=== PATIENT | male | born 1970 | race Caucasian/White ===

== ENCOUNTER 2022-06-20 15:03 | Outpatient (CLI) | payer OTHER, SELFPAY ==
[2022-06-20 11:36] LABS: Chloride* 103 mmol/L (96-114); Potassium* 4.1 mmol/L (3.6-5.1); Sodium* 140 mmol/L (135-149)
[2022-06-20 11:39] LABS: Alanine Aminotransferase* 39 U/L (4-50); Blood Urea Nitrogen* 22 mg/dL (7-30); Carbon Dioxide* 29 mmol/L (20-32); Cholesterol* 202 mg/dL (90-199); Creatinine* 0.8 mg/dL (0.5-1.5); Estimated Glomerular Filt Rate 106 ml/min; Glucose* 104 mg/dL (60-115); Triglycerides* 140 mg/dL (40-149)
[2022-06-20 11:40] LABS: Calcium* 9.2 mg/dL (8.4-10.6); HDL Cholesterol* 52 mg/dL (>=40); LDL Cholesterol Calculated 122 mg/dL (<100)
[2022-06-20 12:07] LABS: PSA Screen* 0.41 ng/mL (0.10-4.00)
== END 2022-06-20 15:04 | disposition home or self-care (01) ==
PROVIDERS: PCP Family Medicine; Visit Provider Family Medicine
DX: E78.5 Hyperlipidemia, unspecified (principal); Z12.5 Encounter for screening for malignant neoplasm of prostate
CPT/HCPCS: 80048; 80061; 84153; 84460

== ENCOUNTER 2023-01-31 15:14 | Outpatient (CLI) | payer OTHER, SELFPAY | END 2023-01-31 15:15 | disposition home or self-care (01) | PROVIDERS: PCP Family Medicine; Visit Provider Internal Medicine | DX: R41.3 Other amnesia (principal); E78.5 Hyperlipidemia, unspecified; E55.9 Vitamin D deficiency, unspecified; I10 Essential (primary) hypertension; F41.9 Anxiety disorder, unspecified | CPT/HCPCS: 80053; 84443; 87086 ==

== ENCOUNTER 2023-05-21 14:30 | Outpatient (CLI) | payer BC, SELFPAY | END 2023-05-21 14:31 | disposition home or self-care (01) | PROVIDERS: PCP Family Medicine; Visit Provider Family Medicine | DX: E78.5 Hyperlipidemia, unspecified (principal); Z12.5 Encounter for screening for malignant neoplasm of prostate | CPT/HCPCS: 80061; 84153 ==

== ENCOUNTER 2023-06-12 11:24 | Outpatient (CLI) | payer BC, SELFPAY | END 2023-06-12 11:25 | disposition home or self-care (01) | PROVIDERS: PCP Family Medicine; Visit Provider Family Medicine | DX: N28.9 Disorder of kidney and ureter, unspecified (principal); E04.1 Nontoxic single thyroid nodule; E78.5 Hyperlipidemia, unspecified; I10 Essential (primary) hypertension; E55.9 Vitamin D deficiency, unspecified | CPT/HCPCS: 80048; 83735; 84443 ==

== ENCOUNTER 2023-07-11 13:05 | Outpatient (CLI) | payer BC, SELFPAY ==
--- NOTE | 2023-07-11 13:00 | CRLHL7_ITS ---
For Patients: As a result of the Cures Act, medical imaging exams and procedure reports are released immediately into your electronic medical record. You may view this report before your referring provider. If you have questions, please contact your health care provider. CLINICAL HISTORY: Thyroid nodule TECHNIQUE: Crowe-scale and color Doppler images were acquired of the thyroid gland. FINDINGS: The right lobe measures 6.3 x 2.7 x 2.5 and the left lobe measures 5.5 x 1.5 x 1.8 in size. Right thyroid lobe: 1. Right mid hypoechoic 2.3 x 2.3 x 2.2 centimeter nodule TR4. Left thyroid lobe: 1. Left lateral mid 1.6 x 0.9 x 1.2 centimeter heterogeneous hypoechoic nodule TR 4. IMPRESSION: Multinodular thyroid. ACR TI-RADS [email or web address] TR1: Benign No FNA TR2: Not Suspicious No FNA TR3: Mildly Suspicious FNA if greater than or equal to 2.5 cm Follow if greater than or equal to 1.5 cm TR4: Moderately Suspicious FNA if greater than or equal to 1.5 cm Follow if greater than or equal to 1 cm TR5: Highly Suspicious FNA if greater than or equal to 1 cm Follow if greater than or equal to 0.5 cm Dictated by Maude Ridley MD @ 07/12/2023 6:51:11 AM (Electronically Signed)
== END 2023-07-11 13:06 | disposition home or self-care (01) ==
LOC: US 13:06
PROVIDERS: PCP Family Medicine; Visit Provider Family Medicine
DX: E04.1 Nontoxic single thyroid nodule (principal)
CPT/HCPCS: 76536

== ENCOUNTER 2023-07-23 10:07 | Outpatient (CLI) | payer BC, SELFPAY ==
--- NOTE | 2023-07-23 10:15 | CRLHL7_ITS ---
For Patients: As a result of the Century Cures Act, medical imaging exams and procedure reports are released immediately into your electronic medical record. You may view this report before your referring provider. If you have questions, please contact your health care provider. INDICATION : Right thyroid nodule. TECHNIQUE : Ultrasound-guided fine needle aspiration of thyroid nodule. Comparison : 07/11/2023 FINDINGS : PROCEDURE: After the informed consent and time-out, multiple fine needle aspirations were obtained from the thyroid nodule. Fine needle performed. 25 gauge needles were used. Lidocaine was used for local anesthesia. The preliminary cytology was adequate for interpretation. Real-time imaging was used for guidance and needle placement. Post imaging ultrasound demonstrates no immediate complication. IMPRESSION : Successful fine needle aspiration of right thyroid lobe nodule. Dictated by Bryan Jung MD @ 07/23/2023 12:07:35 PM (Electronically Signed)
[2023-07-23 12:58] LABS: Hepatitis B Surface Antigen* Negative (Negative)
[2023-07-23 13:07] LABS: HIV 1/2/P24 Combo Screen* Negative (Negative)
[2023-07-23 13:15] LABS: Hepatitis C Virus Antibody* Negative (Negative)
== END 2023-07-23 10:08 | disposition home or self-care (01) ==
LOC: US 10:08
PROVIDERS: PCP Family Medicine; Visit Provider Family Medicine
DX: E04.2 Nontoxic multinodular goiter (principal)
CPT/HCPCS: 10005; 36415; 86703; 86803; 87340; 88173

== ENCOUNTER 2024-07-10 10:38 | Outpatient (CLI) | payer BC, SELFPAY ==
--- OUTSIDE RECORDS SUMMARY | 2024-07-10 10:40 | XMS_ITS | Encounter Summary ---
Author Organization [facility] Address [address] [place] [address] Care Team Providers Care Watch Dial Stoner Name Role Phone Elsewhere, Pcp Primary Care Provider Unavailabl e Reason for Visit * Reason Onset Date Comments Numbness 05/13/2024 Encounter Details Date Type Department Care Team (Late st Contact Info) Description 05/13/2024 Nurse Triage Department of Family Medicine, [facility], in [place], [place] [address] [place] [phone] Elidia Bowen, R.N. Numbness Social History Tobacco Use Types Packs/Day Years Used Date Smoking Tobacco: Never Assessed Nutrition Answer Date Recorded Nutrition: EVOO Fat Source Unknown 05/30 Nutrition: Servings of Fruits/Vegetables per Day Not on file 05/30/2023 Dental Answer Date Recorded Dental: Regular Dentist Unknown 05/30/20 Sex and Gender Information Value Date Recorded Sex Assigned at Not on file Gender Identity Not on file Sexual Orientation Not on file documented as of this encounter Miscellaneous Notes * Telephone Encounter - Elidia Bowen RRowanN. - 05/13/2024 8:23 AM CDT Chief Complaint / Reason for Call Patient is a 54 y.o. male calling regarding Numbness. Assessment Concern: Patient, who is seen in ortho, is having some return of some numbness he was having following an injury. He would like to speak to someone in ortho. Patient denies the following adult emergency symptoms: chest pain, difficulty breathing/shortness of breath, difficulty staying alert and awake, dizziness/lightheadedness/weakness, and thoughts of hurting self or others Patient transferred to specialty department, Orthopaedics, to speak to their nursing team. The recommended disposition is Misdirected. documented in this encounter Plan of Treatment Not on file documented as of this encounter Visit Diagnoses Not on filedocumented in this encounter Care Teams Watch Dial Stoner Relationship Specialty Start Date End Date Elsewhere, Pcp PCP - General 12/23/18 documented as of this encounter
--- OUTSIDE RECORDS SUMMARY | 2024-07-10 10:40 | XMS_ITS | Clinical Summary ---
Author Organization [facility] Address [address] [place] [address] Care Team Providers Care Hands Assembler Name Role Phone Elsewhere, Pcp Primary Care Provider Unavailabl e Source Comments Patient records contain information from all sites at [facility]. For routine questions regarding patient records, call [phone] during business hours, M-F 8:00 AM - 5:00 PM Central Time. Record requests for emergency care only can be directed to [phone] at any time.[facility] Allergies No known active allergies Medications Medication Sig Dispensed Refills Start Date End Date Status amphetamine-dextroa mphetamine (ADDERALL XR) 30 mg 24 hr capsule Take by mouth daily. A ctive fluticasone propionate (FLONASE) 50 mcg/actuation nasal spray 2 SPRAY INTRANASALLY EVERY DAY ADMINISTER INTO EACH NOSTRIL Active LORazepam (ATIVAN) 1 mg tablet 1 MG ORALLY EVERY 6 HOURS NEEDED FOR ANXIETY Active pantoprazole (PROTONIX) 40 mg EC tablet Take 40 mg by mouth 2 (two) times a day. Active acetaminophen (TYLENOL) 325 mg tablet Take 325 mg by mouth every 4 (four) hours as needed for pain. Active ibuprofen (ADVIL,MOTRIN) 200 mg capsule Take 600 mg by mouth every 6 (six) hours as needed for pain. Active celecoxib (CeleBREX) 200 mg capsule Take 1 capsule by mouth 2 (two) times a day. 04/15/2024 Active atorvastatin (Lipitor) 20 mg tablet TAKE 1 TAB (20 MG) ORALLY EVERY DAY AT BEDTIME 04/15/2024 Active Active Problems No known active problems Encounters Date Type Department Care Team Description 06/30/2024 Clinical Communication Department of Orthopedic Surgery in [place], [place] [address] [place] [address] Fiona Condon P.A.-C., P.A. Walic Form (Wok Comp [id number]) 05/13/2024 Clinical Communication Department of Orthopedic Surgery in [address] [phone] Fiona Condon P.A.-C., P.A. 05/13/2024 Nurse Triage Department of Family Medicine, [facility], in [address] [phone] Elidia Bowen R.N. Numbness 05/07/2024 9:45 AM CDT Office Visit Department of Orthopedic Surgery in [address] [phone] Fiona Condon P.A.-C., P.A. Fracture Fifth Metacarpal Base Displaced Subsequent With Routine Healing Right (Primary Dx) 05/07/2024 8:59 AM CDT - 05/07/2024 11:59 PM CDT Hospital Encounter Department of Radiology in [address] [phone] Fiona Condon P.A.-C., P.A. Fracture Fifth Metacarpal Base Displaced Closed Initial Right Discharge Disposition: Home or Self Care from Last 3 Months Immunizations Name Administration Dates Next Due DTaP (Infanrix, Tripedia) 04/17/2009 H1N1 All Forms 10/29/2009 Influenza, Unspecified 09/17/2007,10/03/2006,03/2005,08/30/2004 Td (Adult), adsorbed 01/29/2001 Social History Tobacco Use Types Packs/Day Years [...] on file Sexual Orientation Not on file Plan of Treatment Health Maintenance Due Date Last Done Comments CT Colonography 1969 Cologuard 1969 Colonoscopy 1969 Colorectal Cancer Screening 1969 FIT 1969 HIV Screening 1969 Hepatitis C Screening 1969 Hepatitis B Vaccines (1 of 3 - 19+ 3-dose series) 1988 Lipid (Cholesterol) Screening 05/20/2023 05/20/2018 Depression Screening (Annual PHQ-2) 10/22/2023 COVID-19 Vaccine (3 - 2022- season) 2024 11/17/2020, 10/20/2020 Influenza Vaccine (#1) 2024 , 09/10/2019, 11/12/2018, Additional history exists Fasting Glucose for Diabetes Screening 05/30/2026 05/30/2023, 05/20/2018 DTaP,Tdap,and Td Vaccines (3 - Td or Tdap) 12/10/2033 12/10/2023, 04/17/2009, 04/17/2009, Additional history exists Zoster Vaccines Completed 02/05/2023, 10/05/2022 Pneumococcal vaccine (0-64 years) Aged Out No longer eligible based on patient's age to complete this topic Procedures Procedure Name Priority Date/Time Associated Diagnosis Comments ORS CAST/SPLINT REMOVAL Routine 05/07/2024 9:45 AM CDT Fracture Fifth Metacarpal Base Displaced Subsequent With Routine Healing Right DX HAND RIGHT 3+ VIEWS RAD - Routine (most inpatients and all outpatients) 05/07/2024 9:24 AM CDT Fracture Fifth Metacarpal Base Displaced Closed Initial Right from Last 3 Months Results * cast-splint removal (05/07/2024 9:45 AM CDT) Narrative MMODAL - 05/07/2024 9:45 AM CDT Lynn Mead C.M.A. ? 05/07/2024 12:30 PM Cast-splint removal Performed by: Lynn Mead C.[place] Authorized by: Fiona Condon, KatelynA.-Lit, P.A. ?? PROCEDURE DETAILS Location: Right Upper Extremity Procedure details: Scheduled Removal Of Short Arm Cast. Appearance: Lots of Dry Skin, Otherwise Warm & [place]. Radial Pulse Present. CONSENT Consent obtained: verbal Consent given by: patient The benefits, risks and alternatives to the procedure and the potential need for sedation or anesthesia as well as the names, roles, and responsibilities of healthcare team members performing significant interventional tasks were discussed with the patient and/or decision maker. UNIVERSAL PROTOCOL All relevant documentation and testing were reviewed and available. All required blood products, implants, devices and or special equipment were made available as applicable. Pre-procedure verification was conducted and the correct site was marked if required. A fire risk assessment was done as applicable. The procedural time-out to verify correct patient, correct side/site, and procedure was conducted prior to performing the procedure and confirmed in a procedural pause. PRE-PROCEDURE DETAILS Procedure purpose: therapeutic Indications: RD5 Metacarpal Base Fracture SEDATION / ANESTHESIA Anesthesia method: none POST-PROCEDURE DETAILS ?? Procedure completed successfully: yes ?? Complications: no apparent complications Fiona Condon P.A.-C., P.A. PROCEDU RE/MINOR SURGICAL ORDERABLES MMODAL NA * DX Hand Right 3+ Views (05/07/2024 9:24 AM CDT) Anatomical Region Laterality Modality Upper Extremity, Hand, Muscu loskeletal RST LOS, Musculoskeletal ARZ LOS, Muskuloskeletal FLA LOS Right Digit al Radiography Impressions 05/07/2024 9:31 AM CDT Comparison 03/26/2024. Interval removal of external casting material. Progressive healing of oblique fifth metacarpal shaft fracture, fracture line remains visible though less conspicuous. No new fracture. Alignment is anatomic. 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 Tissue is within normal limits. Narrative 05/07/2024 9:31 AM CDT EXAM: DX HAND RIGHT 3+ VIEWS Procedure Note Mela Min D.O. - 05/07/2024 EXAM: DX HAND RIGHT 3+ VIEWS IMPRESSION: Comparison 03/26/2024. Interval removal of external casting material.Progressive healing of oblique fifth metacarpal shaft fracture, fractureline remains visible though less conspicuous. No new fracture. Alignmentis anatomic. 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 Tissue is within normal limits. Sherry Zacarias P.A.-C. IMG [facility]NO[facility] IMAGING PROCEDURES from Last 3 Months Care Teams Hands Assembler Relationship Specialty Start Date End Date Elsewhere, Pcp PCP - General 12/23/18
--- OUTSIDE RECORDS SUMMARY | 2024-07-10 10:40 | XMS_ITS | Encounter Summary ---
Author Organization [facility] Address [address] [place] [address] Care Team Providers Care Information Officer Name Role Phone Elsewhere, Pcp Primary Care Provider Unavailabl e Encounter Details Date Type Department Care Team (Late st Contact Info) Description 05/13/2024 Clinical Communication Department of Orthopedic Surgery in [place], [place] [address] [phone] Fiona Condon P.A.-C., P.A. [address] [place] [phone] Social History Tobacco Use Types Packs/Day Years [...] encounter Miscellaneous Notes * Telephone Encounter - Anni Knight R.N. - 05/13/2024 1:12 PM CDT Called patient and informed him Fiona Condon P.A.-C. Completed a work note to keep him off work today. Discussed this could be from overuse. Patient will turkey picker the work note from the Information Desk at the clinic in [place]. * Telephone Encounter - Anni Knight R.N. - 05/13/2024 8:45 AM CDT Called patient and discussed concerns with right hand. Patient sustained a right 5th metacarpal fracture on 03/25 while at work. Patient last saw Fiona Condon P.A.-C. on 05/07 and was transitioned from an ulnar gutter cast to an Exos brace. Patient states he has been wearing the brace while at work, but not wearing it when at home. Patient states he did more at work yesterday with his right hand than he normally does. Patient came home and took the brace off. Patient had numbness in his wholeright arm and pain in the right hand when he tried to make a fist. Patient took Tylenol in the middle of the night, which he feels helped with the pain. Patient still has numbness in his right hand and is unable to make a fist without pain today. Patient states he is able to move his fingers, but still has pain with gripping. documented in this encounter Plan of Treatment Not on file documented as of this encounter Visit Diagnoses Not on filedocumented in this encounter Care Teams Information Officer Relationship Specialty Start Date End Date Elsewhere, Pcp PCP - General 12/23/18 documented as of this encounter
--- OUTSIDE RECORDS SUMMARY | 2024-07-10 10:40 | XMS_ITS | Referral Summary ---
Author Organization [facility] Address [address] [place] [address] Care Team Providers Care Special Services Agent Name Role Phone Elsewhere, Pcp Primary Care Provider Unavailabl e Source Comments Patient records contain information from all sites at [facility]. For routine questions regarding patient records, call [phone] during business hours, M-F 8:00 AM - 5:00 PM Central Time. Record requests for emergency care only can be directed to [phone] at any time.[facility] Encounters Date Type Department Care Team Description 06/30/2024 Clinical Communication Department of Orthopedic Surgery in [address] [phone] Fiona Condon P.A.-C., P.A. PandaDoc Form (Wok Comp [id number]) 05/13/2024 Clinical Communication Department of Orthopedic Surgery in [address] [phone] Fiona Condon P.A.-C., P.A. 05/13/2024 Nurse Triage Department of Family Medicine, [facility], in [address] [phone] Elidia Bowen R.N. Numbness 05/07/2024 8:59 AM CDT - 05/07/2024 11:59 PM CDT Hospital Encounter Department of Radiology in [address] [phone] Fiona Condon P.A.-C., P.A. Fracture Fifth Metacarpal Base Displaced Closed Initial Right Discharge Disposition: Home or Self Care 05/07/2024 9:45 AM CDT Office Visit Department of Orthopedic Surgery in [place], [place] [address] [place] [address] Fiona Condon P.A.-C., P.A. Fracture Fifth Metacarpal Base Displaced Subsequent With Routine Healing Right (Primary Dx) from Last 3 Months Allergies No known active allergies Medications Medication [...] Active Active Problems No known active problems Immunizations Name Administration Dates Next Due DTaP (Infanrix, Tripedia) 04/17/2009 H1N1 All Forms 10/29/2009 Influenza, Unspecified 09/17/2007,10/03/2006,03/2005,08/30/2004 Td (Adult), adsorbed 01/29/2001 Social History Tobacco Use Types Packs/Day Years Used Date Smoking Tobacco: Never Assessed Nutrition Answer Date Recorded Nutrition: EVOO Fat Source Unknown 05/30 Nutrition: Servings of Fruits/Vegetables per Day Not on file 05/30/2023 Dental Answer Date Recorded Dental: Regular Dentist Unknown 05/30/20 23 Sex and Gender Information Value Date Recorded Sex Assigned at Not on file Gender Identity Not on file Sexual Orientation Not on file Plan of Treatment Not on file Procedures Procedure Name Priority Date/Time Associated Diagnosis [...] by: Lynn Mead C.[place]ahomy Authorized by: Fiona Condon P.A.-C., P.A. ?? PROCEDURE DETAILS Location: Right Upper Extremity Procedure details: Scheduled Removal Of Short Arm Cast. Appearance: Lots of Dry Skin, Otherwise Warm & [place]. Radial Pulse Present. CONSENT Consent obtained: verbal [...] ulnar jointosteoarthritis. Tissue is within normal limits. Fiona Condon P.A.-C., P.A. IMG CHAUNCEY GNOSTIC IMAGING PROCEDURES from Last 3 Months Care Teams Special Services Agent Relationship Specialty Start Date End Date Elsewhere, Pcp PCP - General 3/4/19
--- OUTSIDE RECORDS SUMMARY | 2024-07-10 10:40 | XMS_ITS | Encounter Summary ---
Author Organization [facility] Address [address] [place] [address] Care Team Providers Care Change Management Expert Name Role Phone Elsewhere, Pcp Primary Care Provider Unavailabl e Reason for Visit * Reason Onset Date Comments PandaDoc Form 06/30/2024 Wok Comp [id number] Encounter Details Date Type Department Care Team (Latest Contact Info) Description 06/30/2024 Clinical Communication Department of Orthopedic Surgery in [place], [place] [address] [phone] Fiona Condon P.A.-C., P.A. [address] [phone] PandaDoc Form (Wok Comp [id number]) Social History Tobacco Use Types Packs/Day Years [...] encounter Miscellaneous Notes * Telephone Encounter - Maranda Mathew - 07/02/2024 12:36 PM CDT Received confirmation via email from Patient Services on 07/02/24 regarding printing form(s)/contacting patient for pickup: Done * Telephone Encounter - Maranda Mathew - 07/02/2024 12:22 PM CDT - Copy emailed to [facility] to print/notify patient of pickup at clinic - Copy sent to [facility] to be scanned into the chart * Telephone Encounter - Maranda Mathew - 07/02/2024 10:27 AM CDT Form was routed to Fiona Condon PA-C, for electronic review/signature. METAL BONDING HELPER: Beck Ramirez PHONE NUMBER: [phone] INFO REQUESTED: Work Comp/HCPR (DOI: 03/24/24) INSTRUCTIONS: - Email to [facility] to print/contact for pickup * Telephone Encounter - Marielle Hall - 06/30/2024 4:37 PM CDT Work Comp form received by JOSSE Forms Team on 06/30/[address] [facility]. Please allow 7- 10 business days forform completion documented in this encounter Plan of Treatment Not on file documented as of this encounter Visit Diagnoses Not on filedocumented in this encounter Care Teams Change Management Expert Relationship Specialty Start Date End Date Elsewhere, Pcp PCP - General 12/23/18 documented as of this encounter
--- OUTSIDE RECORDS SUMMARY | 2024-07-10 10:40 | XMS_ITS | Encounter Summary ---
Author Organization [facility] Address [address] [place] [address] Care Team Providers Care Transmission Maintenance Supervisor Name Role Phone Elsewhere, Pcp Primary Care Provider Unavailabl e Reason for Referral * Outpatient (Routine) - Closed Specialty Diagnoses / Procedures Referred By Contac t Referred To Contact Diagnoses Fracture Fifth Metacarpal Base Displaced Closed Initial Right Procedures DX Hand Right 3+ Views Fiona Condon P.A.-C., P.A. [address] [place] [address] [facility] Region Referral ID Status Reason Start Date Expiration Date Visits Re quested Visits Authorized [id number] Closed 03/26/2024 03/26/2025 1 1 Reason for Visit * Outpatient (Routine) - Closed Specialty Diagnoses / Procedures Referred By Contac t Referred To Contact Diagnoses Fracture Fifth Metacarpal Base Displaced Closed Initial Right Procedures DX Hand Right 3+ Views Fiona Condon P.A.-C., P.A. [address], [place] [address] [facility] Region Referral ID Status Reason Start Date Expiration Date Visits Re quested Visits Authorized [id number] Closed 03/26/2024 03/26/2025 1 1 Encounter Details Date Type Department Care Team (Latest Contact Info) Description 05/07/2024 8:59 AM CDT - 05/07/2024 11:59 PM CDT Hospital Encounter Department of Radiology in [place], [place] [address] [place] [address] Fiona Condon P.A.-C., P.A. [address] [phone] Fracture Fifth Metacarpal Base Displaced Closed Initial Right Discharge Disposition: Home or Self Care Social History Tobacco Use Types Packs/Day Years [...] on file documented as of this encounter Medications at Time of Discharge Medication Sig Dispensed Refills Start Date End Date acetaminophen (TYLENOL) 325 mg tablet Take 325 mg by mouth every 4 (four) hours as needed for pain. amphetamine-dextroamphe tamine (ADDERALL XR) 30 mg 24 hr capsule Take by mouth daily. atorvastatin (Lipitor) 20 mg tablet TAKE 1 TAB (20 MG) ORALLY EVERY DAY AT BEDTIME 04/15/2024 celecoxib (CeleBREX) 200 mg capsule Take 1 capsule by mouth 2 (two) times a day. 04/15/2024 fluticasone propionate (FLONASE) 50 mcg/actuation nasal spray 2 SPRAY INTRANASALLY EVERY DAY ADMINISTER INTO EACH NOSTRIL ibuprofen (ADVIL,MOTRIN) 200 mg capsule Take 600 mg by mouth every 6 (six) hours as needed for pain. LORazepam (ATIVAN) 1 mg tablet 1 MG ORALLY EVERY 6 HOURS NEEDED FOR ANXIETY pantoprazole (PROTONIX) 40 mg EC tablet Take 40 mg by mouth 2 (two) times a day. documented as of this encounter Plan of Treatment Not on file documented as of this encounter Procedures Procedure Name Priority Date/Time Associated Diagnosis Comments DX HAND RIGHT 3+ VIEWS RAD - Routine (most inpatients and all outpatients) 05/07/2024 9:24 AM CDT Fracture Fifth Metacarpal Base Displaced Closed Initial Right documented in this encounter Results * DX Hand Right 3+ Views (05/07/2024 [...] P.A.-C., P.A. IMG CHAUNCEY GNOSTIC IMAGING PROCEDURES documented in this encounter Visit Diagnoses Diagnosis Fracture Fifth Metacarpal Base Displaced Closed Initial Right documented in this encounter Care Teams Transmission Maintenance Supervisor Relationship Specialty Start Date End Date Elsewhere, Pcp PCP - General 12/23/18 documented as of this encounter
--- OUTSIDE RECORDS SUMMARY | 2024-07-10 10:40 | XMS_ITS ---
Author Organization [facility] Address [address] [place] [address] Care Team Providers Care Receiver Setter Name Role Phone Unavailable Unavailable Unavailable Surgery Details Not on file Complications Check Surgery Details section. Procedure Estimated Blood Loss Check Surgery Details section. Procedure Findings Check Surgery Details section. Procedure Specimens Taken Check Surgery Details section.
--- OUTSIDE RECORDS SUMMARY | 2024-07-10 10:41 | XMS_ITS | Clinical Summary ---
Author Organization [employer] [facility] [place] [facility] [employer] [facility] Address [place], [place] [address] Care Team Providers Care Retail Marketing Coordinator Name Role Phone Bryan Salas MD Primary Care Provider + Allergies No known active allergies Medications Medication Sig Dispensed Refills Start Date End Date Status guar gum 4gm (BENEFIBER) packet Take 1 Packet by mouth 3 times daily. Mix 1 packet in 4 oz of beverage/soft food. 0 09/11/2011 Active dextroamphetamine-am phetamine (ADDERALL XR) 30 mg Extended-Release capsuleIndications:A dult ADHD Take 1 capsule by mouth once daily 90 capsule 07/18/2018 Active LORazepam (ATIVAN) 1 mg tabletIndications:An xiety Take 1 tablet by mouth every 6 hours if needed. 30 tablet 12/17/2018 Active sertraline (ZOLOFT) 100 mg tabletIndications:An xiety Take 1 tablet by mouth once daily. 90 tablet 12/17/2018 Active pantoprazole (PROTONIX) 40 mg delayed-release tabletIndications:Ga stroesophageal reflux disease, esophagitis presence not specified Take 1 tablet by mouth 2 times daily. 180 tablet 12/17/2018 Active fluticasone (50 mcg per actuation) nasal solution (FLONASE)Indications :Seasonal allergic rhinitis due to other allergic trigger Inhale 1 [place] into both nostrils once daily. 3 Bottle 12/17/2018 Active dextroamphetamine-am phetamine (ADDERALL XR) 30 mg Extended-Release capsuleIndications:A dult ADHD Take 1 capsule by mouth once daily 30 capsule 02/15/2019 Active nabumetone (RELAFEN) 750 mg tabletIndications:Kn ee effusion, right,Quadriceps muscle strain, right, initial encounter,Acute pain of right knee Take 1 tablet by mouth 2 times daily with meals. 60 tablet 12/17/2018 Active Active Problems Problem Noted Date Diagnosed Date Arthritis of knee, right 09/11/2019 Genu varum of both lower extremities 09/11/2019 Subluxation of right patella 08/08/2018 Quadriceps muscle strain, right, initial encount er 07/25/2018 Knee effusion, right 07/25/2018 Quadriceps strain, right, initial encounter 10/2017 Acute pain of right knee 07/22/2018 S/P right knee arthroscopy 06/03/2018 Bucket-handle tear of medial meniscus of right knee as current injury 05/16/2018 Right knee pain 05/16/2018 Anxiety 03/19/2014 Overview (03/19/2014): Diagnosis of Anxiety noted in PCP documentation at [facility] on 05/10/2013. Marlyn Rendon RN..............03/19/2014 1:35 PM Vitamin D deficiency 05/07/2013 Adult ADHD 08/21/2011 Hypertension 08/23/2009 Other and unspecified hyperlipidemia 10/28/2007 ALLERGIC RHINITIS 10/28/2007 Esophageal reflux 09/24/2007 Status post arthroscopy of right knee Resolved Problems Problem Noted Date Diagnosed Date Resolved Date Effusion of right knee 07/22/201808/08 Immunizations Name Administration Dates Next Due Influenza A (H1N1), Inactiva azael (Age >=3 Years) 10/29/2009 Influenza, IIV3 (Age >=3 years) 08/03/20 16,07/01/2015,07/21/2013,2010,07/22/2010,08/05/2009,09/17/2007 Td (Age >=7 Years) 05/22/2009 Tdap 04/17/2009 Family History Medical History Relation Name Comments Hypertension Maternal Uncle Hypertension Mother Hypertension Paternal Uncle Relation Name Status Comments Maternal Uncle Mother Paternal Uncle Social History Tobacco Use Types Packs/Day Years Used Date Smoking Tobacco: Never Smokeless Tobacco: Never Alcohol Use Standard Drinks/Week Comments No 0 (1 standard drink = 0.6 oz pur e alcohol) Social Connections Answer Date Recorded Frequency of Communication with Friends and Fami ly Not on file 10/22/2021 Financial Resource Strain Answer Date R ecorded Difficulty of Paying Living Expenses Not on file 10/22/2021 Difficulty of Paying Living Expenses Not on file 10/22/2021 Sex and Gender Information Value Date Recorded Sex Assigned at Not on file Gender Identity Not on file Sexual Orientation Not on file Obstetrics History Last Filed Vital Signs Vital Sign Reading Time Taken Comments Blood Pressure 156/81 03/24/2024 8:20 PM CDT Pulse 55 03/24/2024 8:20 PM CDT Temperature 36.8 ??C (98.2 ??F) 03/24/2024 8:20 PM CD T Respiratory Rate 16 03/24/2024 8:20 PM CDT Oxygen Saturation 100% 03/24/2024 8:20 PM CDT Inhaled Oxygen Concentration - - Weight 98.9 kg (218 lb) 03/24/2024 8:20 PM CDT Height 185.4 cm (6' 1) 03/24/2024 8:20 PM CDT Body Mass Index 28.76 03/24/2024 8:20 PM CDT Plan of Treatment Health Maintenance Due Date Last Done Comments HIV for age 15-65 1984 Hepatitis C screening for age 18-79 1987 Colonoscopy through age 75 2014 Depression screening for age 12+ 02/27/2018 02/27/2017 Zoster (shingles) series for age 50+ (1 of 2) 2019 Tetanus booster 05/22/2019 05/22/2009, 04/17/2009 BMI (ht and wt on same day) for age 18+ 01/04/2022 01/04/2021, 09/11/2019, 12/17/2018, Additional history exists Lipids for age 45-75 05/20/2023 05/20/2018, 05/06/2013, 09/20/2010, Additional history exists COVID-19 vaccine series (2022- season) 2024 11/17/2020, 10/20/2020 Influenza for age 50-64 06/22/2024 08/03/20 16, 07/01/2015, 07/21/2013, Additional history exists Tdap Completed 04/17/2009 Pneumococcal series for age 6-64 Aged Out No longer eligible based on patient's age to complete this topic Procedures Procedure Name Priority Date/Time Associated Diagnosis Comments LIPID PANEL W REFLEX MEASURED LDL Routine 05/20/2018 11:41 AM CDT Essential hypertension from Last 3 Months or Most Recently Relevant to Health Maintenance Results * (ABNORMAL) LIPID PANEL W REFLEX MEASURED LDL (05/20/2018 11:41 AM CDT) CHOLESTEROL,TOTAL 280(H) 100 - 199 mg/dL 05/20/2018 12:31 PM CDT [facility] TRIGLYCERIDES 340(H) <150 mg/dL 05/20/2018 12:31 PM CDT [facility] HDL CHOLESTEROL 49 >40 mg/dL 8 12:31 PM CDT [facility] NON-HDL CHOLESTEROL 231(H) <145 mg/dl 05/20/2018 12:31 PM CDT [facility] CHOL/HDL RATIO 5.71(H) <4.50 05/20/2018 12:31 PM CDT [facility] LDL CHOLESTEROL 163(H) <=130 mg/dL 05/20/2018 12:31 PM CDT [facility] PROVIDER ORDERED STATUS RANDOM 05/20/2018 12:31 PM CDT [facility] Blood BLOOD SPECIMEN / Unknown Venipuncture / Unknown 05/20/2018 11:41 AM CDT 05/20/2018 11:41 AM CDT Bryan Salas MD CHEMISTRY Performing Organization Address City/State/[facility] Co de Phone Number [facility] [address] [place] [address] from Last 3 Months or Most Recently Relevant to Health Maintenance Advance Directives * Full Code (Latest Code Status on File) Date Activated Date Inactivated Comments 05/31/2018 11:58 AM 05/31/2018 6:38 PM Question Answer Comments Code Status Discussion: Discussed * Full Code Date Activated Date Inactivated Comments 10/21/2009 7:54 AM 10/22/2009 1:17 PM Care Teams Retail Marketing Coordinator Relationship Specialty Start Date End Date Bryan Salas MD [address] [place] [address] PCP - General 10/03/06
--- OUTSIDE RECORDS SUMMARY | 2024-07-10 10:41 | XMS_ITS | Encounter Summary ---
Author Organization [facility] Address [address] [place] [address] Care Team Providers Care Sap Basis Name Role Phone Elsewhere, Pcp Primary Care Provider Unavailabl e Reason for Visit * Reason Onset Date Comments Appt Request 03/25/2024 Encounter Details Date Type Department Care Team (Late st Contact Info) Description 03/25/2024 Clinical Communication Department of Orthopedic Surgery in [place], [place] [address] [phone] Bryn Ware M.D. [address] [phone] Appt Request Social History Tobacco Use Types Packs/Day Years [...] encounter Miscellaneous Notes * Telephone Encounter - Lynn Mead C.M.A. - 03/25/2024 8:39 AM CDT S: ER follow up B: Seen in the [facility] ER in [place] on 03/25/24 for Right Fifth Metacarpal Injury, while at work. Hand pulled, and hit vice. This is a WC case. WC: Hedianne Wang [facility], [place]. XR & DOI: 03/25/24. Diagnosed with Right Fifth Metacarpal Fracture. Given Splint. Instructed to follow up in within 7 days with Orthopedics. A: Needs appointment R: Message forwarded to to review and recommend plan of care. Per Dr. Ware: See PA this week for ulnar gutter cast. Take Xray's in the cast. Called patient and scheduled him for an appointment with Fiona Condon on 03/26/24 at 11:00am for 30 mins. Jeff Blocked for casting. documented in this encounter Plan of Treatment Not on file documented as of this encounter Visit Diagnoses Not on filedocumented in this encounter Care Teams Sap Basis Relationship Specialty Start Date End Date Elsewhere, Pcp PCP - General 12/23/18 documented as of this encounter
--- OUTSIDE RECORDS SUMMARY | 2024-07-10 10:41 | XMS_ITS | Encounter Summary ---
Author Organization [facility] Address [address] [place] [address] Care Team Providers Care Cooker Meal Name Role Phone Elsewhere, Pcp Primary Care Provider Unavailabl e Reason for Referral * Outpatient (Routine) - Authorized Specialty Diagnoses / Procedures Referred By Contac t Referred To Contact Diagnoses Fracture Fifth Metacarpal Base Displaced Subsequent With Routine Healing Right Procedures cast-splint removal Fiona Condon P.A.-C., P.A. [address] [phone] [facility] Region Referral ID Status Reason Start Date Expiration Date V isits Requested Visits Authorized [id number] Authorized 05/07/2024 05/07/2025 1 1 Reason for Visit * Reason Comments Follow-up WC: [facility]. DOI: 03/25/24. Fracture WC: [facility]. DOI: 03/25/24. Cast Removal WC: [facility]. DOI: 03/25/24. Work Related Injury WC: [facility]. DOI: 03/25/24. * Outpatient (Routine) - Closed Specialty Diagnoses / Procedures Referred By Contac t Referred To Contact Orthopedic Surgery Fiona Condon P.A.-C., P.A. [address] [place] [address] [facility] Region Referral ID Status Reason Start Date Expiration Date Visits Re quested Visits Authorized [id number] Closed 03/26/2024 09/25/2025 1 1 Encounter Details Date Type Department Care Team (Late st Contact Info) Description 05/07/2024 9:45 AM CDT Office Visit Department of Orthopedic Surgery in [place], [place] [address] [place] [phone] Fiona Condon P.A.-C., P.A. [address] [place] [phone] Fracture Fifth Metacarpal Base Displaced Subsequent With Routine Healing Right (Primary Dx) Social History Tobacco Use Types Packs/Day Years [...] on file documented as of this encounter Patient Instructions * Patient Instructions* Jeff Pa L.A.T., Leonard.T.C. - 05/07/2024 9:45 AM CDT The patient has been informed of the other medical supply locations in the immediate area. The patient has been fitted with a EXOS Ulnar gutter short fracture brace for his Right hand as requested byFiona Condon PA-C Instructions were given on the proper care and usage of the product with the p atient verbalizing understanding of the instructions. [facility] return and warranty policy was given and reviewed with the patient paperwork has been faxed to the [facility]. Leonard Zepeda.T.CRowan Clinical Mechanical Supervisor Department of Orthopedics documented in this encounter Progress Notes * Fiona Condon P.A.-C., P.A. - 05/07/2024 9:45 AM CDT SUBJECTIVE CHIEF COMPLAINT: Right fifth metacarpal fracture HPI: Mr. Ramirez is a pleasant 54 y.o. year-old male here for a follow up of a right fifth metacarpal fracture. He was last seen on 03/26/2024. He has been in an ulnar gutter cast since that visit and has not had any difficulty. His pain has improved significantly since our last visit. OBJECTIVE PHYSICAL EXAM: GENERAL: This is a well-nourished, well-developed, 54 y.o. male. He is alert and oriented x3. No acute distress. He is cooperative and responds appropriately to all questions. MUSCULOSKELETAL: Very mild tenderness to palpation of the midshaft of the fifth metacarpal. No significant swelling or tenderness throughout the remainder of the hand. Good range of motion of the small finger, it is slightly stiff secondary to previous casting. NEURO: Sensation is intact to light touch throughout right upper extremity. Cap refill is less than2 seconds. IMAGING: Right hand x-rays performed today show removal of previous casting material. Healing of the obliquefifth metacarpal shaft fracture. Fracture line remains faintly visible. No new fractures. Alignmentis anatomic. 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 ASSESSMENT / PLAN #1 Fracture Fifth Metacarpal Base Displaced Subsequent With Routine Healing Right He is doing very well. He can increase his activity as tolerated. 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 We will provide him with an Exosbrace today, he will wear this at work. He can remove it when he is out of work and work on range of motion and strengthening exercises. He will continue to use his brace for 4-6 weeks, he can then discontinue the brace without restrictions. I will plan no formal follow-up with him at this time, however I would be happy to see him any time in the future. documented in this encounter Procedure Notes * Lynn Mead C.M.A. - 05/07/2024 9:45 AM CDTAssociated Order(s): cast-splint removal Post-Procedure Diagnose(s): Fracture Fifth Metacarpal Base Displaced Subsequent With Routine Healing Right Cast-splint removal Performed by: Lynn Mead C.M.A. Authorized by: Fiona Condon P.A.-C., P.A. PROCEDURE DETAILS Location: Right Upper Extremity Procedure details: Scheduled Removal Of Short Arm Cast. Appearance: Lots of Dry Skin, Otherwise Warm & [place]. Radial Pulse Present. CONSENT Consent obtained: verbal [...] / ANESTHESIA Anesthesia method: none POST-PROCEDURE DETAILS Procedure completed successfully: yes Complications: no apparent complications documented in this encounter Plan of Treatment Not on file documented as of this encounter Procedures Procedure Name Priority Date/Time Associated Diagnosis Comments ORS CAST/SPLINT REMOVAL Routine 05/07/2024 9:45 AM CDT Fracture Fifth Metacarpal Base Displaced Subsequent With Routine Healing Right documented in this encounter Results * cast-splint removal (05/07/2024 9:45 AM CDT) Narrative [facility] - 05/07/2024 9:45 AM CDT Lynn Mead C.M.A. ? 05/07/2024 12:30 PM Cast-splint removal Performed by: Lynn Mead C.M.A. Authorized by: Fiona Condon P.A.-C., P.A. ?? PROCEDURE DETAILS Location: Right Upper Extremity Procedure details: Scheduled Removal Of Short Arm Cast. Appearance: Lots of Dry Skin, Otherwise Warm & [place]. Radial Pulse Present. CONSENT Consent obtained: verbal [...] P.A. PROCEDU RE/MINOR SURGICAL ORDERABLES [facility] NA documented in this encounter Visit Diagnoses Diagnosis Fracture Fifth Metacarpal Base Displaced Subsequent With Routine Healing Right- Primary documented in this encounter Care Teams Cooker Meal Relationship Specialty Start Date End Date Elsewhere, Pcp PCP - General 12/23/18 documented as of this encounter
== END 2024-07-10 10:39 | disposition home or self-care (01) ==
PROVIDERS: PCP Family Medicine; Visit Provider Family Medicine
DX: E78.5 Hyperlipidemia, unspecified (principal); I10 Essential (primary) hypertension
CPT/HCPCS: 80048; 80061; 84460

== ENCOUNTER 2025-10-12 13:10 | Outpatient (CLI) | payer BC, SELFPAY | END 2025-10-12 13:11 | disposition home or self-care (01) | PROVIDERS: PCP Family Medicine; Visit Provider Family Medicine | DX: I10 Essential (primary) hypertension (principal); E78.2 Mixed hyperlipidemia; Z12.5 Encounter for screening for malignant neoplasm of prostate | CPT/HCPCS: 80048; 80061; 84460; 85025; G0103 ==